=== PATIENT | female | born 1985 | race Caucasian/White ===

== ENCOUNTER → 2019-10-27 | Outpatient (CLI) | payer BC ==
[~2019-10-27] MED LIST: ACET1TAB43 PO; ACET325T38 PO; ASCO-262 PO; DOCU100C37 PO; FERR325C PO; FERR325T18 PO; IBUP-1773 PO; PREN1TAB79 PO
== END ==
LOC: LAB FS 13:09
PROVIDERS: ATTEND Family Medicine
DX: N92.6 Irregular menstruation, unspecified (principal)
CPT/HCPCS: 36415; 84702

== ENCOUNTER → 2019-11-04 | Outpatient (CLI) | payer BC ==
[2019-11-04 11:33] LABS: HEMOGLOBIN 13.5 G/DL (11.5-16.0); RED CELL DISTRIBUTION WIDTH 13.2 % (10.0-14.5); WHITE BLOOD COUNT 6.7 10^3/uL (4.3-11.0)
[2019-11-04 11:34] LABS: MEAN PLATELET VOLUME 10.9 FL (7.4-10.4)
[2019-11-04 15:14] LABS: FREE T4 (FREE THYROXINE) 0.89 NG/DL (0.70-1.48)
== END ==
LOC: LAB FS 11:07
PROVIDERS: ATTEND Family Medicine
DX: N92.0 Excessive and frequent menstruation with regular cycle (principal)
CPT/HCPCS: 36415; 84439; 84443; 85027

== ENCOUNTER 2019-12-23 05:30 | Outpatient (RCR) | payer BC ==
[~2019-12-23] VITALS: Ht 152 cm; Wt 53.0 kg
[~2019-12-23 05:30] MED LIST changes: +DIPH-85 PO; +LORA10TA76 PO
== END 2019-12-23 14:42 | disposition home or self-care (01) ==
LOC: PREOP 05:30
PROVIDERS: ATTEND Obstetrics & Gynecology
DX: Z01.818 Encounter for other preprocedural examination (principal); Z11.59 Encounter for screening for other viral diseases
CPT/HCPCS: 87635

== ENCOUNTER 2019-12-27 06:05 | Day surgery (SDC) | payer BC ==
[~2019-12-27] VITALS: Ht 152 cm; Wt 53.0 kg
[2019-12-27] VITALS (9 sets, daily range): BP systolic 99–120; BP diastolic 60–84
[2019-12-27] MEDS ORDERED: ceFAZolin INJECTION 1,000 MG in WATER (STERILE) FOR INJECTION 10 ML IV ONE (06:15)
[2019-12-27] MEDS ORDERED: metroNIDAZOLE 500MG/100ML IVPB 100 ML IV ONE (06:15)
[2019-12-27] MEDS: LACTATED RINGERS 1,000 ML IV PRN ×3 (06:40→08:08)
[2019-12-27] MEDS ORDERED: LIDOCAINE PF 2% 5 ML (XYLOCAINE) VIAL ONE (06:49)
[2019-12-27] MEDS ORDERED: ONDANSETRON 4 MG/2 ML (SDV) Z0FRAN ONE (06:49)
[2019-12-27] MEDS ORDERED: proPOfol 200 MG/20 ML (DIPRIVAN) VIAL IV ONE (06:49)
[2019-12-27] MEDS ORDERED: NEOSTIGMINE 3 MG/3 ML VIAL ONE (06:49)
[2019-12-27] MEDS ORDERED: GLYCOPYRROLATE 0.2 MG/ML (ROBINUL) 2 ML VIAL ONE (06:49)
[2019-12-27] MEDS ORDERED: ROCURONIUM 10 MG/ML 5 ML SYRINGE IV ONE (06:49)
[2019-12-27] MEDS ORDERED: SEVOFLURANE (ULTANE) 15 ML INHAL SOLN ONE ×2 (06:49→08:49)
[2019-12-27] MEDS ORDERED: DEXAMETHASONE 10 MG/ML (DECADRON) 1 ML VIAL ONE (06:49)
[2019-12-27] MEDS ORDERED: MIDAZOLAM 2 MG/2 ML (VERSED) VIAL ONE (06:50)
[2019-12-27] MEDS ORDERED: fentaNYL INJECTION 100 MCG/2 ML AMP ONE (06:50)
[2019-12-27] MEDS ORDERED: ALPR0.254 PO (06:51)
[2019-12-27 06:54] LABS: BASOPHILS % (AUTO) 1 % (0-10); EOSINOPHILS # (AUTO) 0.1 10^3/uL (0.0-0.3); EOSINOPHILS % (AUTO) 2 % (0-10); HEMATOCRIT 39 % (35-52); LYMPHOCYTES # (AUTO) 1.6 X 10^3 (1.0-4.0); LYMPHOCYTES % (AUTO) 30 % (12-44); MEAN CORPUSCULAR HEMOGLOBIN 31 PG (25-34); MEAN CORPUSCULAR HGB CONC 34 G/DL (32-36); MEAN CORPUSCULAR VOLUME 91 FL (80-99); MEAN PLATELET VOLUME 11.7 FL (7.4-10.4); MONOCYTES # (AUTO) 0.5 X 10^3 (0.0-1.0); MONOCYTES % (AUTO) 9 % (0-12); NEUTROPHILS # (AUTO) 3.1 X 10^3 (1.8-7.8); NEUTROPHILS % (AUTO) 58 % (42-75); PLATELET COUNT 208 10^3/uL (130-400); RED CELL DISTRIBUTION WIDTH 12.7 % (10.0-14.5); WHITE BLOOD COUNT 5.4 10^3/uL (4.3-11.0)
[2019-12-27] MEDS ORDERED: BUPIVACAINE 0.25% 30 ML (SENSORCAINE) VIAL ONE ×2 (06:58→07:02)
[2019-12-27] MEDS ORDERED: metroNIDAZOLE 500MG/100ML IVPB 100 ML ONE (06:59)
[2019-12-27] MEDS ORDERED: ceFAZolin INJECTION 1,000 MG ONE (06:59)
[2019-12-27] MEDS ORDERED: WATER (STERILE) FOR INJECTION 10 ML ONE (06:59)
[2019-12-27] MEDS ORDERED: LACTATED RINGERS 1,000 ML IV SCH (07:10)
--- NOTE | 2019-12-27 07:10 | Progress Note-Pre Operative ---
Pre-Operative Progress Note H&P Reviewed The H&P was reviewed, patient examined and no changes noted. Date Seen by Provider: Dec 27, 2019 Time Seen by Provider: 07:05 Date H&P Reviewed: Dec 27, 2019 Time H&P Reviewed: 07:05 Pre-Operative Diagnosis: JUNIOR 3 STEFFI HALEY DO Dec 27, 2019 07:10
[2019-12-27] MEDS ORDERED: CHLORASEPTIC LOZENGE MM PRN (07:15)
[2019-12-27] MEDS ORDERED: DOCUSATE SODIUM 100 MG (COLACE) CAP PO PRN (07:15)
[2019-12-27] MEDS ORDERED: ANTACID SUSP 30 ML UDC (MYLANTA) PO PRN (07:15)
[2019-12-27] MEDS ORDERED: SIMETHICONE 80 MG (MYLICON) CHEW PO PRN (07:15)
[2019-12-27] MEDS ORDERED: ZOLPIDEM 5 MG (AMBIEN) TAB PO PRN (07:15)
[2019-12-27] MEDS ORDERED: ONDANSETRON 4 MG/2 ML (SDV) Z0FRAN IV PRN (07:15)
[2019-12-27] MEDS ORDERED: CATHETER FLUSH 10 ML SYR IV PRN (07:15)
[2019-12-27] MEDS ORDERED: HYDROcodone/APAP 7.5 MG/325 MG (LORTAB, LORCET PLUS) TABLET PO PRN (07:15)
[2019-12-27] MEDS ORDERED: DCS100C PO (07:16)
[2019-12-27] MEDS ORDERED: HYDR-34 PO (07:16)
[2019-12-27] MEDS ORDERED: SIME80TA16 PO (07:16)
[2019-12-27] MEDS ORDERED: IBUP-844 PO (07:16)
--- NOTE | 2019-12-27 07:19 | Discharge Inst-Women's Service ---
Discharge Inst-Women's Serv Depart Medication/Instructions New, Converted or Re-Newed RX: RX on Chart Final Diagnosis POD 1 RATLH Problems Reviewed?: Yes Consults/Follow Up Additional Follow Up: Yes Orders/Referrals DR. Cohen in 7-10 days and in 8 weeks Activity Activity: Activity as Tolerated Driving Instructions: No Driving for 1 Week NO SMOKING: NO SMOKING Nothing Inside Vagina: No Douching, No [place], No Tampons Diet Discharge Diet: No Restrictions Symptoms to Report to : Bleeding Excessive, Pain Increased, Fever Over 101 Degrees F, Vaginal Bleeding Increase, Questions/Concerns For Any Problems or Questions: Contact Your Physician Skin/Wound Care Infection Signs and Symptoms: Increased Redness, Foul Odor of Wound, Increased Drainage, Skin Itchy or Has a Rash, Increased Swelling, Temperature Above 101 F Operative Area Clean and Dry: Keep Incision Clean/Dry Stitches/Nora/Dermabond: Dermabond, Care of Stitches Bathing Instructions: STEFFI Smith DO Dec 27, 2019 07:19
[2019-12-27] MEDS ORDERED: PHENYLEPHRINE 100 MCG/ML 10 ML (ANESTHESIA) SYR ONE (07:59)
[2019-12-27] MEDS ORDERED: morphine INJ 10 MG/ML 1ML (SYR OR VIAL) ONE (09:11)
[2019-12-27] MEDS ORDERED: morphine INJ 10 MG/ML 1ML (SYR OR VIAL) IVP ONE (09:15)
[2019-12-27] MEDS ORDERED: HYDROmorphone 2 MG/ML VIAL (DILAUDID) IV ONE (09:15)
[2019-12-27] MEDS ORDERED: KETOROLAC 30 MG/ML VIAL ONE (09:19)
[2019-12-27] MEDS: KETOROLAC 30 MG/ML VIAL IV PRN ×2 (09:22→15:30)
--- NOTE | 2019-12-27 09:58 | Anesthesia-General Post-Op ---
General Patient Condition Mental Status/LOC: Same as Preop Cardiovascular: Satisfactory Nausea/Vomiting: Absent Respiratory: Satisfactory Pain: Controlled Complications: Absent Post Op Complications Complications None Follow Up Care/Instructions Patient Instructions None needed. Anesthesia/Patient Condition Patient Condition Patient is doing well, no complaints, stable vital signs, no apparent adverse anesthesia problems. SADIA KO DO Dec 27, 2019 09:58
--- NOTE | 2019-12-27 10:05 | NUR ---
pt transferred to room 306 via bed with PACU staff @ side. bedside report received from THERESE Shankar. care assumed of pt.
--- NOTE | 2019-12-27 10:09 | NUR ---
initial shift assessment completed, see interventions for further. POC reviewed with pt and mother. call light within reach.
[2019-12-27] MEDS: ONDANSETRON 4 MG/2 ML (SDV) Z0FRAN IVP PRN ×2 (10:13→10:14)
--- NOTE | 2019-12-27 11:22 | NUR ---
sandwich tray served per request.
--- NOTE | 2019-12-27 13:35 | NUR ---
boyd catheter dc'd. 100cc urine noted in chamber.
--- NOTE | 2019-12-27 14:40 | NUR ---
assisted up to BR. voided 150cc clear, yellow urine. melissa-care offered. v-pad in place. IV TELLY'irina.
--- NOTE | 2019-12-27 15:32 | NUR ---
dismissal instructions given, verbalizes understanding. reviewed follow up appointments and Rx's. signature page signed, placed on chart.
--- NOTE | 2019-12-27 15:35 | NUR ---
pt dismissed to private vehicle via w/c with THERESE Greer and pt's mother @ side. pt stable with no sx's of distress noted.
--- NOTE | 2019-12-27 18:18 | OPERATIVE REPORT ---
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 PROCEDURE: Robotic-assisted total laparoscopic hysterectomy with bilateral salpingectomy. SURGEON: Joey Cohen DO RADIATOR CORE TESTER: Meg Orellana DNP, who was necessary for manipulation and retraction throughout the procedure. ANESTHESIA: General endotracheal. ESTIMATED BLOOD LOSS: Minimal. URINE OUTPUT: 500 mL, clear at the end of procedure. FLUIDS: 2100 mL lactated Ringer's solution. FINDINGS: A grossly normal appearing external female genitalia. The cervix appears grossly normal externally. Grossly normal appearing bilateral fallopian tubes and uterus on peritoneal examination as well as two grossly normal-appearing ovaries. SPECIMEN SENT: Uterus, cervix, bilateral fallopian tubes. 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 She had this finding before in the past as well as a few low-grades in her 20s. Colposcopy revealed JUNIOR 3 of the endocervix. I discussed with the patient proceeding with a conization procedure; however, due to the patient being completed with childbearing, she wished to proceed with hysterectomy due to this recurrent dysplasia becoming an annual problem for her. Risks of the procedure were discussed with the patient in detail including risk of bleeding, infection, damage to surrounding structures including, but not limited to bowel, bladder, ureter, kidneys, possible need for reoperation, postoperative complications that could occur, recovery timeframe, need for a long time repeat cytology, risk from anesthesia, possible need for blood transfusion and even . Everything was discussed with the patient in detail, consent was obtained in the preoperative area and the patient was taken to the operating room. OPERATIVE REPORT IN DETAIL: Once in the operating room, anesthesia was found to be adequate. She was placed in dorsal lithotomy position, prepped and draped in normal sterile fashion. Timeout was performed. Perry catheter was placed using sterile technique. A weighted speculum inserted to the patient's vagina. Right angle retractor was used to visualize the cervix, which was grasped at 12 o'clock position using a long Allis clamp, 0 Vicryl suture was then placed in anterior lip of the cervix. The Allis clamp was then removed. Vicryl suture was then used as my retraction on the cervix. I then gently dilated the cervix using Hegar dilators and sounded the uterine cavity, depth was found to be 8 cm. I selected an 8 cm Lisa uterine manipulator tip and a 3.5 cm colpotomy ring. I advanced the manipulator tip into the cervix and deployed the balloon and the endometrium and advanced the colpotomy ring around the vaginal fornix after which excellent bimanual manipulation is noted. I removed all the other instruments from the patient's vagina at that point and performed a change of gloves and took my attention to the abdomen where infraumbilically I infiltrated this area using 0.25% Marcaine and make an 8 mm incision with a knife and directed Veress needle through the incision until intraperitoneal placement was confirmed using saline drop test. An opening pressure of 3 mmHg was noted. I proceeded to max pressure of 15 mmHg, at which point I removed the Veress needle and introduced an 8 mm blunt da Andrea camera trocar. Once this was in place, I am able to confirm intraperitoneal placement using da Andrea laparoscope. A brief scan of the upper abdominal anatomy appears normal. I then placed the patient in steep Trendelenburg and able to visualize the pelvic anatomy as described in my findings above. I placed two lateral trocars, these were both 8 cm lateral to my infraumbilical trocar. These were 8 mm incisions. The skin was infiltrated using 0.25% Marcaine. Incisions were made with a knife and the trocars were placed under direct visualization of the laparoscope. Once these trocars were both in place, I brought in the da Andrea robot and docked in appropriate fashion, placing the da Andrea vessel sealer in the left hand and monopolar ingrid in the right hand. I then took my place at the da Andrea operative console. I then performed the following dissection bilaterally. Starting at the uteroovarian ligament, I bipolar cauterized this and transected this using vessel sealer. I created a window in the mesosalpinx taking the dissection laterally, dissecting the fallopian tube away from its blood supply. I then grasped the round ligament, bipolar cauterized and transected this using the vessel sealer. At that point, I am able to grasp the entire broad ligament, which I then bipolar cauterized and transected using the vessel sealer. I do this down to the level of the lower uterine segment, at which point I the anterior leaflet around to the anterior vaginal fornix. The posterior leaflet was taken around the posterior vaginal fornix. I also visualized the ureters during my dissection and stay clear of these during my dissection. I then I am able to skeletonize the uterine vessels laterally, which I then bipolar cauterized and transected using the vessel sealer. I then created a colpotomy at 12 o'clock position using monopolar ingrid and took this circumferentially around the vaginal fornix amputating the cervix from the vagina. The entire specimen was then removed through the vagina. I then reapproximated the vaginal cuff. I started at the lateral vaginal apices. Using 2-0 Vicryl suture in a [id number] fashion, I colposuspend them to the uterosacral ligaments. I then closed the remainder of the vaginal cuff using 2-0 V-Loc in a running fashion, after which there was no active bleeding noted from any of my dissection planes. I then undocked the da Andrea robot and scrubbed back into the case where we dressed the pelvis laparoscopically. I then copiously irrigated the pelvis again. Once again, there was no active bleeding noted from any of my dissection planes. I placed FloSeal hemostatic agent over all my planes of dissection to ensure excellent postoperative hemostasis. I then had the patient taken out of steep Trendelenburg where I removed the lateral trocars under direct visualization of laparoscope. The infraumbilical trocar was left in place to release insufflation and to introduce 10 mL of 0.25% Marcaine into the peritoneal cavity for postoperative pain management. I then removed this trocar as well. The skin was then reapproximated using 4-0 Monocryl in interrupted subcuticular stitches. Dermabond was applied to incision and Band-Aids were placed over these incisions as well. The patient tolerated the procedure well and was taken to recovery area in stable condition with Perry catheter still in place. Lap and sponge counts were correct at the end of the procedure. Instrument counts correct as well. One gram of Ancef and 500 mg of Flagyl were given preoperatively for infection prophylaxis. Job ID: [id number] DocumentID: [id number] Dictated Date: 12/27/2019 11:34:27 Grievance And Appeals Coordinator Date: 12/27/2019 18:17:55 Dictated By: DO GARCIA COOLEY
[2019-12-28] MEDS ORDERED: IBUPROFEN 600 MG (MOTRIN) TAB PO SCH
== END 2019-12-27 15:35 | disposition home or self-care (01) ==
LOC: SDC 06:05 → WS 10:05 → SDC 15:35
PROVIDERS: ATTEND Obstetrics & Gynecology
DX: D06.0 Carcinoma in situ of endocervix (principal); N83.8 Other noninflammatory disorders of ovary, fallopian tube and broad ligament; D25.2 Subserosal leiomyoma of uterus; F41.9 Anxiety disorder, unspecified; Z88.7 Allergy status to serum and vaccine
CPT/HCPCS: 36415; 84703; 85025; 86850; 86900; 86901; 87081; 88309

== ENCOUNTER → 2020-11-22 | Outpatient (CLI) | payer BC ==
[~2020-11-22] MED LIST changes: +ALPR.25T PO; +DCS100C PO; +HYDR-34 PO; +IBUP-844 PO; +SIME80TA16 PO
--- NOTE | 2020-11-22 13:07 | Diagnostic Imaging Report ---
INDICATION: Right groin pain Survey of the right inguinal canal does not demonstrate any pathologic mass or fluid collection. There is no hernia seen. IMPRESSION: Unremarkable ultrasound of the right groin. Dictated by: Dictated on workstation # [id number]
== END ==
LOC: RAD 12:22
PROVIDERS: ATTEND Surgery
DX: R10.31 Right lower quadrant pain (principal)
CPT/HCPCS: 76881